=== PATIENT | female | born 1990 | race Two or more races ===

== ENCOUNTER 2017-03-17 18:23 | Inpatient (IN) ==
[2017-03-17] MEDS ORDERED: LACTATED RINGERS 1,000 ML IV ONE (19:08)
[2017-03-17] MEDS ORDERED: TERBUTALINE 1 MG/1 ML VIAL SUBCUT PRN (19:11)
[2017-03-17] MEDS ORDERED: BUTORPHANOL 2 MG/ML VIAL IV PRN (19:11)
[2017-03-17] MEDS ORDERED: ONDANSETRON 4 MG/2 ML VIAL IV PRN (19:11)
[2017-03-17] MEDS: LACTATED RINGERS 1,000 ML IV SCH ×2 (19:24→23:16)
[2017-03-17] MEDS: OXYTOCIN/LR 20 UNIT/1,000 ML BAG IV SCH (19:28)
[2017-03-17 19:32] LABS: Basophils % 0.3 % (0.0-0.8); Eosinophils # 0.1 10*3/uL (0.0-0.87); Eosinophils % 0.4 % (0.00-10.9); Hematocrit 31.2 VOL% (35.7-47.0); Hemoglobin 10.8 GM/DL (12.0-16.0); Immature Granulocytes % 0.7 %; Immature Granulocytes Absolute 0.11 #; Lymphocytes # 2.4 10*3/uL (1.4-4.0); Mean Corpuscular HGB Conc 34.6 GM/DL (32-36); Mean Corpuscular Hemoglobin 28 PG (27-34); Mean Corpuscular Volume 81.3 FL (87-102); Mean Platelet Volume 10.5 FL (9.6-12.0); Monocytes % 6.3 % (1.7-12.7); Neutrophils # 12.3 10*3/uL (1.4-7.4); Neutrophils % 77.3 % (38.7-73.9); Platelet Count 278 T/CUMM (130-400); Red Blood Count 3.84 MC/CUMM (3.8-5.5); Red Cell Distribution Width 13.5 % (9.3-17.3)
[2017-03-17 19:59] LABS: Alanine Aminotransferase 16 U/L (13-56); Albumin 2.8 G/DL (3.4-5.0); Alkaline Phosphatase 171 U/L (45-117); Aspartate Amino Transferase 15 U/L (0-37); Bilirubin,Total < 0.39 MG/DL (0.2-1.0); Blood Urea Nitrogen 7 MG/DL (7-18); Calcium 8.5 MG/DL (8.5-10.1); Glucose 97 MG/DL (74-106); Osmolality,Calculated 270.8 MOS/KG (273-304); Potassium 3.5 MMOL/L (3.5-5.1); Sodium 137 MMOL/L (136-145); Total Protein 6.5 G/DL (6.4-8.3)
[2017-03-17] MEDS ORDERED: AMPICILLIN INJ 2,000 MG in SODIUM CHLORIDE 0.9% 50 ML IV ONE (23:00)
[2017-03-18] MEDS: AMPICILLIN INJ 1,000 MG in SODIUM CHLORIDE 0.9% 50 ML IV SCH ×4 (03:10→21:27)
[2017-03-18] MEDS ORDERED: BUTORPHANOL 1 MG/ML VIAL ONE (16:57)
[2017-03-18] MEDS ORDERED: CITRIC ACID/SODIUM CITRATE 30 ML UDCUP PO ONE (17:12)
[2017-03-18] MEDS ORDERED: LACTATED RINGERS 1,000 ML IV ONE (17:12)
[2017-03-18] MEDS ORDERED: FAMOTIDINE 20 MG/2 ML VIAL IV ONE (17:12)
[2017-03-18] MEDS ORDERED: OXYTOCIN/LR 30 UNIT/1,000 ML BAG IV ONE (18:11)
[2017-03-18] MEDS ORDERED: MORPHINE 10 MG/10 ML VIAL ONE (18:47)
[2017-03-18 18:48] LABS: Apearance,Urine CLEAR (Clear); Bilirubin,Urine Negative (Negative); Blood, Urine Small mg/dL (Negative); Glucose,Urine (UA) Negative (Negative); Ketones,Urine 80 mg/dL (Negative); Mucus,Urine Occasional /LPF (Occasional); Nitrite,Urine Negative (Negative); Protein,Urine Negative; RBC,Urine 18 /HPF (0-4); Urine Color Yellow (Yellow); Urine Specific Gravity 1.015 (1.001-1.035); Urine Urobilinogen < 2.0 EU/DL (0.2-1.0); WBC,Urine 1 /HPF (0-6)
[2017-03-18] MEDS ORDERED: OXYTOCIN 10 UNIT/ML VIAL ONE (18:48)
[2017-03-18] MEDS ORDERED: ONDANSETRON 4 MG/2 ML VIAL ONE (18:55)
[2017-03-18] MEDS ORDERED: DEXAMETHASONE 10 MG/1 ML VIAL ONE (18:55)
[2017-03-18 18:59] LABS: Cord Venous Blood HCO3 20.3 MMOL/L; Cord Venous Blood PCO2 37.3 MMHG; Cord Venous Blood PO2 23.7 MMHG
[2017-03-18 19:02] LABS: Cord Arterial Blood HCO3 23.4 MMOL/L
[2017-03-18] MEDS ORDERED: diphenhydrAMINE 50 MG/1 ML VIAL IV ONE (20:33)
[2017-03-18] MEDS: OXYTOCIN/LR 20 UNIT/1,000 ML BAG IV SCH (21:10)
[2017-03-18] MEDS ORDERED: OXYTOCIN/LR 20 UNIT/1,000 ML BAG IV ONE (21:22)
[2017-03-18] MEDS ORDERED: ONDANSETRON 4 MG/2 ML VIAL IV PRN (21:22)
[2017-03-18] MEDS ORDERED: LACTATED RINGERS 1,000 ML IV SCH (21:22)
[2017-03-18] MEDS ORDERED: RHO(D) IMMUNE GLOBULIN 300 MCG SYRINGE IM ONE (21:22)
[2017-03-18] MEDS ORDERED: SIMETHICONE CHEW 80 MG TABLET PO PRN (21:22)
[2017-03-18] MEDS ORDERED: ACETAMINOPHEN 325 MG TABLET PO PRN (21:22)
[2017-03-18] MEDS: LACTATED RINGERS 1,000 ML IV SCH (21:29)
[2017-03-19] MEDS: DOCUSATE SODIUM 100 MG CAPSULE PO SCH ×3 (00:02→20:34)
[2017-03-19] MEDS: ceFAZolin 1,000 MG in SYRINGE 1 EACH IV SCH ×2 (02:52→10:17)
[2017-03-19] MEDS: diphenhydrAMINE CAP 25 MG CAPSULE PO PRN ×3 (03:04→18:01)
[2017-03-19 05:41] LABS: Basophils % 0.2 % (0.0-0.8); Hemoglobin 9.5 GM/DL (12.0-16.0); Immature Granulocytes % 0.9 %; Immature Granulocytes Absolute 0.16 #; Lymphocytes # 1.4 10*3/uL (1.4-4.0); Lymphocytes % 7.8 % (21.3-54.2); Mean Corpuscular HGB Conc 35.2 GM/DL (32-36); Mean Corpuscular Hemoglobin 29 PG (27-34); Mean Corpuscular Volume 81.1 FL (87-102); Mean Platelet Volume 10.4 FL (9.6-12.0); Monocytes # 1.5 10*3/uL (0.11-0.8); Neutrophils # 15.2 10*3/uL (1.4-7.4); Neutrophils % 83.1 % (38.7-73.9); Platelet Count 263 T/CUMM (130-400); Red Blood Count 3.33 MC/CUMM (3.8-5.5); Red Cell Distribution Width 13.2 % (9.3-17.3); White Blood Count 18.3 T/CUMM (4-12)
[2017-03-19] MEDS: MULTIVITAMIN (PRENATAL) TABLET PO SCH (10:31)
[2017-03-19] MEDS: MAGNESIUM HYDROXIDE SUSP 30 ML UDCUP PO PRN ×2 (10:32→20:34)
[2017-03-19] MEDS: IBUPROFEN 800 MG TABLET PO PRN (14:58)
[2017-03-19] MEDS: FERROUS SULFATE 325 MG TABLET PO SCH (20:34)
[2017-03-20] MEDS ORDERED: oxyCODONE/ACETAMINOPHEN 5-325 MG TABLET PO PRN (01:04)
[2017-03-20] MEDS: IBUPROFEN 800 MG TABLET PO PRN (01:16)
[2017-03-20] MEDS: FERROUS SULFATE 325 MG TABLET PO SCH (08:28)
[2017-03-20] MEDS: DOCUSATE SODIUM 100 MG CAPSULE PO SCH (08:28)
[2017-03-20] MEDS: MULTIVITAMIN (PRENATAL) TABLET PO SCH (08:28)
[2017-03-20 11:25] VITALS: BP 127/72
== END 2017-03-20 14:50 | disposition home or self-care (01) | DRG 540 ==
LOC: N.LDOUT 18:23 → N.LD 18:29 → N.OB 03-18 21:30
PROVIDERS: ADMIT Obstetrics & Gynecology; ATTEND Obstetrics & Gynecology
PROC: LDCSECT (ICD-10-PCS; 2017-03-18 18:00)

== ENCOUNTER 2017-05-25 13:24 | Inpatient (IN) ==
[2017-05-25] MEDS ORDERED: LACTATED RINGERS 1,000 ML IV STA (13:28)
[2017-05-25 13:39] LABS: Basophils % 0.4 % (0.0-0.8); Eosinophils # 0.1 10*3/uL (0.0-0.87); Eosinophils % 1.2 % (0.00-10.9); Hematocrit 35.3 VOL% (35.7-47.0); Hemoglobin 11.4 GM/DL (12.0-16.0); Immature Granulocytes % 0.3 %; Immature Granulocytes Absolute 0.02 #; Lymphocytes # 2.5 10*3/uL (1.4-4.0); Lymphocytes % 34.7 % (21.3-54.2); Mean Corpuscular HGB Conc 32.3 GM/DL (32-36); Mean Corpuscular Hemoglobin 26 PG (27-34); Mean Corpuscular Volume 79.7 FL (87-102); Mean Platelet Volume 10.4 FL (9.6-12.0); Monocytes # 0.4 10*3/uL (0.11-0.8); Monocytes % 5.9 % (1.7-12.7); Neutrophils # 4.2 10*3/uL (1.4-7.4); Neutrophils % 57.5 % (38.7-73.9); Platelet Count 357 T/CUMM (130-400); Red Blood Count 4.43 MC/CUMM (3.8-5.5); Red Cell Distribution Width 13.7 % (9.3-17.3); White Blood Count 7.3 T/CUMM (4-12)
[2017-05-25 13:46] LABS: PT Patient Result 10.9 SECS
[2017-05-25] MEDS ORDERED: ONDANSETRON 4 MG/2 ML VIAL ONE (13:54)
[2017-05-25] MEDS ORDERED: HYDROmorphone 2 MG/1 ML VIAL ONE (13:55)
[2017-05-25 14:00] LABS: Apearance,Urine CLEAR (Clear); Bilirubin,Urine Negative (Negative); Blood, Urine Negative (Negative); Glucose,Urine (UA) Negative (Negative); Ketones,Urine Negative (Negative); Mucus,Urine Occasional /LPF (Occasional); Nitrite,Urine Negative (Negative); Protein,Urine Negative; RBC,Urine <1 /HPF (0-4); Squamous Epithelial Cell,Urine Occasional /HPF (0-10); Urine Color Yellow (Yellow); Urine Specific Gravity 1.018 (1.001-1.035); Urine Urobilinogen < 2.0 EU/DL (0.2-1.0); WBC,Urine 1 /HPF (0-6)
[2017-05-25 14:02] LABS: Lactic Acid 2.3 MMOL/L (0.4-2.0)
[2017-05-25] MEDS ORDERED: ONDANSETRON 4 MG/2 ML VIAL IV STA (14:04)
[2017-05-25] MEDS ORDERED: HYDROmorphone 2 MG/1 ML VIAL IV STA (14:04)
[2017-05-25 14:12] LABS: ABG Base Excess -1.4 MMOL/L (-2.5-2.5); ABG HCO3 23.2 MMOL/L (20-26); ABG Oxygen Saturation 99.7 % (95-100); ABG PCO2 21.6 MM HG (35-48); ABG PH 7.562 (7.35-7.45); ABG TCO2 17.5 MMOL/L (23-27)
[2017-05-25 14:15] LABS: Alanine Aminotransferase 24 U/L (13-56); Albumin 3.8 G/DL (3.4-5.0); Alkaline Phosphatase 81 U/L (45-117); Amylase 29 U/L (25-115); Aspartate Amino Transferase 26 U/L (0-37); Blood Urea Nitrogen 15 MG/DL (7-18); Calcium 9.4 MG/DL (8.5-10.1); Glucose 120 MG/DL (74-106); Osmolality,Calculated 276.7 MOS/KG (273-304); Potassium 3.4 MMOL/L (3.5-5.1); Sodium 138 MMOL/L (136-145)
[2017-05-25] MEDS ORDERED: ONDANSETRON 4 MG/2 ML VIAL IV PRN (15:22)
[2017-05-25] MEDS ORDERED: ACETAMINOPHEN 325 MG TABLET PO PRN (15:22)
[2017-05-25] MEDS: LACTATED RINGERS 1,000 ML IV SCH (16:35)
[2017-05-25] MEDS ORDERED: oxyCODONE/ACETAMINOPHEN 5-325 MG TABLET PO PRN (16:44)
[2017-05-25 16:58] LABS: Hematocrit 32.3 VOL% (35.7-47.0); Hemoglobin 11.1 GM/DL (12.0-16.0)
[2017-05-25] MEDS: ceFAZolin 1,000 MG in SYRINGE 1 EACH IV SCH (18:57)
[2017-05-25 21:35] LABS: Hematocrit 31.7 VOL% (35.7-47.0); Hemoglobin 10.5 GM/DL (12.0-16.0)
[2017-05-26] MEDS: HYDROmorphone 2 MG/1 ML VIAL IV PRN ×2 (00:40→23:11)
[2017-05-26] MEDS: ceFAZolin 1,000 MG in SYRINGE 1 EACH IV SCH ×4 (02:29→17:08)
[2017-05-26] MEDS: LACTATED RINGERS 1,000 ML IV SCH ×3 (03:17→07:29)
[2017-05-26 05:52] LABS: Hematocrit 30.2 VOL% (35.7-47.0); Hemoglobin 9.7 GM/DL (12.0-16.0)
[2017-05-26] MEDS: PANTOPRAZOLE 40 MG TABLET PO SCH ×2 (07:49→09:26)
[2017-05-26 09:34] LABS: Hematocrit 29.5 VOL% (35.7-47.0); Hemoglobin 9.7 GM/DL (12.0-16.0)
[2017-05-26] MEDS ORDERED: oxyCODONE/ACETAMINOPHEN 5-325 MG TABLET PO PRN ×2 (10:25)
[2017-05-27] MEDS: ceFAZolin 1,000 MG in SYRINGE 1 EACH IV SCH ×2 (04:32→08:53)
[2017-05-27 06:37] LABS: Hematocrit 30.1 VOL% (35.7-47.0); Hemoglobin 9.8 GM/DL (12.0-16.0)
[2017-05-27] MEDS: PANTOPRAZOLE 40 MG TABLET PO SCH (08:57)
[2017-05-27 11:03] VITALS: BP 125/61
== END 2017-05-27 16:40 | disposition home or self-care (01) | DRG 342 ==
LOC: N.ED 13:24 → N.EDINP 14:15 → N.3E 14:49
PROVIDERS: ADMIT Surgery; ATTEND Surgery